=== PATIENT | female | born 1955 | race Caucasian/White ===

== ENCOUNTER → 2017-04-25 | Outpatient (CLI) | payer BC ==
--- NOTE | 2017-04-26 10:10 | RADIOLOGY IMAGING REPORT ---
FACILITY: [facility] - [place] PATIENT NAME: ELIO RUIZ : [id number] MR: [id number] V: [id number] EXAM DATE: [id number] ORDERING PHYSICIAN: AIMEE KELLOGG TECHNOLOGIST: Sammie Calvillo PROCEDURE:BILATERAL DIGITAL SCREENING MAMMOGRAM WITH CAD ASSISTED INTERPRETATION & 3D TOMOSYNTHESIS COMPARISON:Prior mammograms 05/14/13 INDICATIONS:SCREENING FINDINGS: Extremely dense heterogeneous fibroglandular tissue is seen throughout the breasts. There is an area of architectural distortion in the lateral portion of the Left breast on Left CC view for which spot compression view is recommended. A medial lateral view of the Left breast also recommended. There is an additional area of architecture distortion in the upper portion of the Left breast on the Left MLO view for which spot compression view is recommended. DIAGNOSTIC CATEGORY 0--INCOMPLETE: NEED ADDITIONAL IMAGING EVALUATION. RECOMMENDATIONS: ADDITIONAL MAMMOGRAPHIC VIEWS REQUIRED: LEFT BREAST. IMPRESSION: BIRADS 0: Incomplete Additional view of the Left breast recommended as described. Dictated by: Edel Lares M.D. on 04/25/2017 at 17:25 Transcribed by: JOSE on 04/26/2017 at 8:29 Approved by: Edel Lares M.D. on 04/26/2017 at 10:09 [facility]
== END ==
LOC: MAMO 01:23
PROVIDERS: ATTEND Physician Assistant
DX: Z12.31 Encounter for screening mammogram for malignant neoplasm of breast (principal); R92.8 Other abnormal and inconclusive findings on diagnostic imaging of breast
CPT/HCPCS: 77063; 77067

== ENCOUNTER → 2017-05-09 | Outpatient (CLI) | payer BC ==
--- NOTE | 2017-05-09 16:34 | RADIOLOGY IMAGING REPORT ---
FACILITY: [facility] - [place] PATIENT NAME: ELIO RUIZ : [id number] MR: [id number] V: [id number] EXAM DATE: [id number] ORDERING PHYSICIAN: AIMEE KELLOGG TECHNOLOGIST: Greta Dorado PROCEDURE:LEFT DIGITAL DIAGNOSTIC MAMMOGRAM COMPARISON:None. INDICATIONS:further eval FINDINGS: Previously dictated on Ultrasound. DIAGNOSTIC CATEGORY 5--HIGHLY SUGGESTIVE OF MALIGNANCY. RECOMMENDATIONS: ULTRASOUND-GUIDED CORE BIOPSY: LEFT BREAST. IMPRESSION: 1. Dictated by: Ayan Tan M.D. on 05/09/2017 at 16:10 Transcribed by: JOSE on 05/09/2017 at 16:21 Approved by: Ayan Tan M.D. on 05/09/2017 at 16:33 [facility]
--- NOTE | 2017-05-09 16:34 | RADIOLOGY IMAGING REPORT ---
FACILITY: [facility] PATIENT NAME: ELIO RUIZ : [id number] MR: [id number] V: [id number] EXAM DATE: [id number] ORDERING PHYSICIAN: AIMEE KELLOGG TECHNOLOGIST: Kat Ye PROCEDURE:LEFT DIAGNOSTIC MAMMOGRAM WITH CAD ASSISTED INTERPRETATION & 3D TOMOSYNTHESIS, AND LEFT BREAST US LEFT BREAST. COMPARISON:Prior mammograms INDICATIONS:Left Abnormal Mammogram. FINDINGS: Mammographic findings: The breast is heterogeneously dense. A spiculated mass is present in the superior aspect of the Left breast. Several punctuate calcifications are scattered in the Left breast. Ultrasound findings: A 7mm hypoechoic spiculated mass is present in the superior Left breast, Zone 2, corresponding to the mammographic abnormality. A small elongated hypoechoic structure is present in the lateral Left breast probably representing an ecstatic duct. Several oval shaped fat containing lymph nodes measuring up to 2.3cm in diameter are present in the Left axilla. DIAGNOSTIC CATEGORY 5--HIGHLY SUGGESTIVE OF MALIGNANCY. RECOMMENDATIONS: ULTRASOUND-GUIDED CORE BIOPSY: LEFT BREAST. IMPRESSION: BIRADS 5: Highly suggestive of malignancy. Suspicious abnormality. RECOMMENDATIONS: Ultrasound guided needle core biopsy of Left breast mass. Comment: The findings and recommendations have been discussed with the patient on 05/09/17. Dictated by: Ayan Tan M.D. on 05/09/2017 at 16:08 Transcribed by: JOSE on 05/09/2017 at 16:20 Approved by: Ayan Tan M.D. on 05/09/2017 at 16:33 [facility]
== END ==
LOC: MAMO 04:17
PROVIDERS: ATTEND Physician Assistant
DX: R92.1 Mammographic calcification found on diagnostic imaging of breast (principal); N63.20 Unspecified lump in the left breast, unspecified quadrant
CPT/HCPCS: 77065

== ENCOUNTER 2017-05-17 10:20 | Outpatient (RCR) | payer BC ==
[2017-05-17 10:50] LABS: INR 1.01
--- NOTE | 2017-05-20 12:04 | RADIOLOGY IMAGING REPORT ---
FACILITY: [facility] PATIENT NAME: ELIO RUIZ : [id number] MR: [id number] V: [id number] EXAM DATE: ORDERING PHYSICIAN: AIMEE KELLOGG TECHNOLOGIST: Kat Ye PROCEDURE: ULTRASOUND GUIDED BIOPSY LEFT BREAST COMPARISON: None. INDICATIONS: LEFT BREAST MASS FINDINGS: Informed consent was obtained. The patient's left breast was prepped and draped in the usual sterile fashion. An additional irregular hypoechoic mass was identified in the 12 o'clock position Left breast therefore 2 Left breast masses were biopsied in the 12 o'clock position. Attention was first directed towards the more lateral of the 2 masses which was the original mass diagnosed sonographically. Local anesthesia was accomplished with 1% lidocaine. Under sonographic guidance three 12 Gauge core biopsies were obtained through the irregular hypoechoic mass. The samples were placed in formalin, shown to the patient and sent to the Laboratory for evaluation. A biopsy clip was placed in the biopsy site. Attention was then directed towards the more medial of the 2 masses in the 12 o'clock position of the Left breast. Local anesthesia was accomplished with 1% lidocaine. Three 12 Gauge core biopsies were obtained through this additional mass. The samples were placed in formalin shown to the patient and sent to the Laboratory for evaluation. A biopsy clip was also placed in this location. The post biopsy mammogram did reveal 1 of the biopsy clips to be located in the area of spiculation seen on the recent mammogram. The second biopsy clip appeared slightly more medial. IMPRESSION: 1. Successful ultrasound guided biopsy of 2 irregular hypoechoic masses 12 o'clock position of the Left breast as described above. Dictated by: Edel Lares M.D. on 05/18/2017 at 17:13 Transcribed by: JOSE on 05/20/2017 at 10:53 Approved by: Edel Lares M.D. on 05/20/2017 at 12:02 [facility]
--- NOTE | 2017-05-20 12:04 | RADIOLOGY IMAGING REPORT ---
FACILITY: [facility] PATIENT NAME: ELIO RUIZ : [id number] MR: [id number] V: [id number] EXAM DATE: ORDERING PHYSICIAN: AIMEE KELLOGG TECHNOLOGIST: Kat Ye PROCEDURE: ULTRASOUND GUIDED BIOPSY LEFT BREAST COMPARISON: None. INDICATIONS: LEFT BREAST MASS FINDINGS: Informed consent was obtained. The patient's left breast was prepped and draped in the usual sterile fashion. An additional irregular hypoechoic mass was identified in the 12 o'clock position Left breast therefore 2 Left breast masses were biopsied in the 12 o'clock position. Attention was first directed towards the more lateral of the 2 masses which was the original mass diagnosed sonographically. Local anesthesia was accomplished with 1% lidocaine. Under sonographic guidance three 12 Gauge core biopsies were obtained through the irregular hypoechoic mass. The samples were placed in formalin, shown to the patient and sent to the Laboratory for evaluation. A biopsy clip was placed in the biopsy site. Attention was then directed towards the more medial of the 2 masses in the 12 o'clock position of the Left breast. Local anesthesia was accomplished with 1% lidocaine. Three 12 Gauge core biopsies were obtained through this additional mass. The samples were placed in formalin shown to the patient and sent to the Laboratory for evaluation. A biopsy clip was also placed in this location. The post biopsy mammogram did reveal 1 of the biopsy clips to be located in the area of spiculation seen on the recent mammogram. The second biopsy clip appeared slightly more medial. IMPRESSION: 1. Successful ultrasound guided biopsy of 2 irregular hypoechoic masses 12 o'clock position of the Left breast as described above. Dictated by: Edle Lares M.D. on 05/18/2017 at 17:13 Transcribed by: JOSE on 05/20/2017 at 10:53 Approved by: Edle Lares M.D. on 05/20/2017 at 12:02 [facility]
== END 2017-05-18 18:00 | disposition home or self-care (01) ==
LOC: MAMO 10:20 → EDSTATUS 05-18 10:17 → US 05-18 18:00
PROVIDERS: ATTEND Physician Assistant
DX: Z01.812 Encounter for preprocedural laboratory examination (principal); R92.8 Other abnormal and inconclusive findings on diagnostic imaging of breast; N63.0 Unspecified lump in unspecified breast; C50.912 Malignant neoplasm of unspecified site of left female breast; Z17.0 Estrogen receptor positive status [ER+]
CPT/HCPCS: 19083; 36415; 77065; 85610; 88305; 88344

== ENCOUNTER 2017-06-08 15:54 | Outpatient (RCR) | payer BC ==
[~2017-06-08] VITALS: Ht 148.6 cm; Wt 50.3 kg
[~2017-06-08 15:54] MED LIST: ATOR10TA24 PO; FENO48TA PO; LISI5TAB25 PO; METF-411 PO
[2017-06-08 16:03] VITALS: BP 112/56
[2017-06-08] MEDS ORDERED: ACET-1966 PO (16:08)
[2017-06-08] MEDS ORDERED: ASPI-757 PO (16:08)
[2017-06-08] MEDS ORDERED: ASCO-182 PO (16:08)
[2017-06-08] MEDS ORDERED: CHOL400C10 PO (16:08)
[2017-06-08] MEDS ORDERED: BLAC160C3 PO (16:08)
--- NOTE | 2017-06-09 04:37 | ONCOLOGY HISTORY AND PHYSICAL ---
DATE OF VISIT: June 08, 2017 REFERRING PROVIDER Sara Lambert PA-C REASON FOR CONSULTATION Breast cancer. CHIEF COMPLAINT The patient feels well today. HISTORY OF PRESENT ILLNESS Quynh is a delightful 61-year-old female with a history of hypertension, hypercholesterolemia, and diabetes who presents at the request of Ms. Lambert for evaluation of recently diagnosed breast cancer. The patient recently met with Dr. Alvarenga in surgery to discuss her surgical options. 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 She had not had a mammogram since 2013. Her recent mammogram performed on April 25 revealed extremely dense heterogeneous fibroglandular tissue throughout the breast, as well as an area of architectural distortion in the lateral portion of the left breast on the left CC view, for which spot compression view was recommended. A mediolateral view of the left breast was also recommended. There was an additional area of architecture distortion in the upper portion of the left breast on the left MLO view for which spot compression was recommended. The patient had additional mammographic images subsequently performed, again revealing heterogeneously dense breast tissue with a spiculated mass in the superior aspect of the left breast, and several punctate calcifications are scattered in the left breast as well. Ultrasound revealed a 7 mm hypoechoic spiculated mass in the superior left breast zone 2. This corresponded to the mammographic abnormality. A small elongated hypoechoic structure was present in the lateral left breast, likely representing an ectatic duct. There were several oval-shaped fat containing lymph nodes in the left axilla measuring up to 2.3 cm in diameter. An ultrasound core needle biopsy was recommended and performed. Her biopsy took place on May 18 of this year with a left lateral breast biopsy revealing infiltrating ductal carcinoma, grade 2, with no lymphovascular invasion identified. Estrogen receptor was positive at 88.8%, and progesterone receptor was negative. HER2/dawn by IHC was 2+ (equivocal), but I am unsure of FISH studies performed to evaluate this further. KI67 revealed a low proliferation rate at 8.1.%. Biopsy of the medial left breast revealed focal ductal hyperplasia without atypia. The patient reports not palpable abnormalities in either breast. In general, she has been feeling at her baseline. She reports some modest aches and pains from time to time. She does have occasional fatigue. She reports no shortness of breath, chest pain or productive cough. She has had no abdominal pain, nausea or recent changes in her bowel or bladder habits. She has had noticed no skin changes. REVIEW OF SYSTEMS Otherwise negative, and all systems were reviewed. PAST MEDICAL HISTORY 1. Hypertension. 2. Diabetes mellitus. 3. Hypercholesterolemia. CURRENT MEDICATIONS 1. Atorvastatin. 2. Lisinopril. 3. Fenofibrate. 4. Metformin. 5. Tylenol p.r.n. 6. One half aspirin daily. 7. Vitamin C. 8. Vitamin D. 9. Black cohosh. ALLERGIES No known drug allergies. The patient is reportedly ALLERGIC TO HONEY. FAMILY HISTORY There is no known history of breast or ovarian cancer in the family. A grandmother had been diagnosed with possible lung cancer in the late stages of life. SOCIAL HISTORY Patient lives here in [place]. There is no history of illicit drug use or alcohol abuse. VITAL SIGNS Temperature is 97.9, blood pressure 112/56, heart rate is 71, respirations 16, oxygen saturation is 93% on room air. Weight is 50.3 kg. PHYSICAL EXAMINATION GENERAL: Patient is alert and oriented x 3, in no apparent distress, sitting in the exam room chair. HEENT: Exam reveals anicteric sclerae. NEUROLOGIC: Exam is grossly nonfocal, and her gait is normal. EXTREMITIES: Exam reveals no edema, clubbing or cyanosis. There is some slight joint deformity of the hands. SKIN: Exam reveals no concerning rash or lesion. LABORATORY STUDIES None today. IMAGING AND PATHOLOGY Please see history of present illness. ASSESSMENT AND PLAN Invasive ductal carcinoma of the left breast, ER positive, HER2 unknown (2+ by IHC). I had a good visit with Quynh today. We spent time discussing her overall state of health, and that she had not had a mammogram performed since 2013. Her recent mammogram and ultrasound results were discussed in detail with her. She has noted no palpable abnormalities in either breast. We discussed the diagnosis of breast cancer, staging as it relates to prognosis and treatment decision making, and her next steps. She has already visited with Dr. Alvarenga in the surgery clinic. She understands her surgical options well. At this point, she is planning to undergo lumpectomy and axillary lymph node evaluation. We discussed that her primary tumor does appear to be quite small, but there are some enlarged lymph nodes in the left axilla, although they are not morphologically abnormal. We discussed that radiation therapy would play a role if she decides upon lumpectomy as part of breast conservation therapy. She understands this well. We also spent time discussing conceptually adjuvant endocrine therapy. We discussed both Tamoxifen and aromatase inhibitors, and their common side effects. As discussed, before I order any further diagnostic studies, I would want to see her surgical pathology. I am unsure whether an Oncotype DX study would be particularly helpful for her. I will plan to see the patient back in clinic after she undergoes lumpectomy and axillary lymph node evaluation. This should be in the next 4-6 weeks. Patient had several questions for me today, and I believe I answered all of her questions to her satisfaction. I spent a total of 45 minutes of time with the patient today, face to face, and 40 minutes of this was spent in direct counseling and coordination of care. RD
[2017-06-09] MEDS ORDERED: ESCI10TA8 PO (15:24)
[2017-06-09] MEDS ORDERED: [UNRECOGNIZED DRUG - CODE] PO (15:24)
== END 2017-08-04 14:21 | disposition home or self-care (01) ==
LOC: ONC 15:54
PROVIDERS: ATTEND Internal Medicine Medical Oncology
DX: C50.912 Malignant neoplasm of unspecified site of left female breast (principal); Z17.0 Estrogen receptor positive status [ER+]; R53.83 Other fatigue
CPT/HCPCS: 99202

== ENCOUNTER 2017-06-21 15:28 | Emergency (ER) | payer BC ==
[~2017-06-21 15:28] MED LIST changes: +ACET-1966 PO; +ASCO-182 PO; +ASPI-757 PO; +BLAC160C3 PO; +CHOL400C10 PO; +ESCI10TA8 PO; +METF-410 PO; -METF-411 PO; +[UNRECOGNIZED DRUG - CODE] PO
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
[2017-06-21 16:54] VITALS: BP 116/56
== END 2017-06-21 16:54 | disposition home or self-care (01) ==
LOC: ER 15:37
DX: S20.211A Contusion of right front wall of thorax, initial encounter (principal); S90.01XA Contusion of right ankle, initial encounter; W20.8XXA Other cause of strike by thrown, projected or falling object, initial encounter
CPT/HCPCS: 71046; 71100; 99283